=== PATIENT | female | born 1990 | race Hispanic/Latino ===

== ENCOUNTER 2025-05-21 09:51 | Emergency (ER) | payer BC ==
[~2025-05-21] VITALS: Ht 165.1 cm; Wt 80.3 kg
[2025-05-21] MEDS ORDERED: KETOROLAC TROME10 MG PO (10:43)
[2025-05-21] MEDS ORDERED: ZANAFLEX4 MG PO (10:43)
[2025-05-21] MEDS ORDERED: CIPRO500 MG PO (10:43)
[2025-05-21 10:52] VITALS: PULSE 96; RESP 16; TEMP 97.9; O2SAT 99
[2025-05-21] MEDS ORDERED: SEMAGLUTID0.25 MG/0. (11:04)
== END 2025-05-21 10:52 | disposition home or self-care (01) ==
LOC: FSED 10:04
DX: M54.2 Cervicalgia (principal); R59.9 Enlarged lymph nodes, unspecified
CPT/HCPCS: 99283